=== PATIENT | female | born 1980 | race Caucasian/White ===

== ENCOUNTER 2016-12-09 17:00 | Emergency (ER) | payer MEDICAID ==
[~2016-12-09] VITALS: Wt 58.0 kg
[~2016-12-09 17:00] MED LIST: ACYC400T2 PO; HYDR-3498 PO; LORA-441 PO
[2016-12-09] MEDS ORDERED: KETOROLAC 15 MG INJ IM STA (17:32)
--- NOTE | 2016-12-09 17:34 | ERD ---
ER Documentation Chief Complaint Date/Time DATE: 12/09/16 TIME: 17:31 Chief Complaint LOW BACK PAIN, NO INJURY HPI 36-year-old Macedonian-speaking female presents to emergency department for evaluation of acute back pain, x 2 days, pt has similar symptoms a month ago but resolved . She denies any past medical history of back pain, she does report that she has experienced intermittent back pain ever since epidural 9 years ago with childbirth. translation provided by phone marek. ROS All systems reviewed and are negative except as per history of present illness. Medications Home Meds Active Scripts Hydrocodone Bit-Acetaminophen* (Nora*) 5-325 Mg Tab, 1 TAB PO Q4H Y for PAIN, # 10 TAB Prov:BASIL BETH PA-C 06/17/15 Acyclovir* (Acyclovir*) 400 Mg Tablet, 400 MG PO TID for 7 Days, TAB Prov:BASIL BETH PA-C 06/17/15 Lorazepam* (Ativan*) 0.5 Mg Tablet, 0.5 MG PO BID Y for ANXIETY, #10 TAB Prov:BASIL BETH PA-C 11/24/14 Allergies Allergies: Coded Allergies: No Known Allergies (Verified Allergy, Unknown, 11/24/14) PMhx/Soc History of Surgery: No Anesthesia Reaction: No Hx Neurological Disorder: No Hx Respiratory Disorders: No Hx Cardiac Disorders: No Hx Psychiatric Problems: No Hx Alcohol Use: No Hx Substance Use: No Hx Tobacco Use: No Smoking Status: Never smoker Physical Exam Vitals Vital Signs Date Time Temp Pulse Resp B/P Pulse Ox O2 Delivery O2 Flow Rate FiO2 12/09/16 17:03 97.8 68 17 183/77 99 No stable, triage notes reviewed, blood pressure is noted to be elevated at 183/ 77 suspected related to pain Physical Exam Const: Well-nourished, well-hydrated, well-appearing 36-year-old female obvious discomfort no acute distress Head: Atraumatic Eyes: Normal Conjunctiva, PERRLA, EOMI ENT: Neck: Full range of motion. No cervical spine bony point tenderness Resp: Clear to auscultation bilaterally, no chest wall pain, no respiratory distress Cardio: Regular rate and rhythm, no murmurs Abd: Soft, non tender, non distended. Skin: Back: Back Exam: Skin: No bruising or rash Compartments: Soft Motor: Right leg rises positive at 10 patient barely able to raise legs off the bed, pain with flexion, pain with abduction and abduction bilaterally. Sensation: Intact to light touch throughout Bones: No midline TTP Ext: No cyanosis, or edema Neur: Awake and alert Psych: Normal Mood and Affect Results 24 hrs Laboratory Tests Test 12/09/16 18:04 Bedside Urine pH (LAB) 6.5 Bedside Urine Protein (LAB) Negative Bedside Urine Glucose (UA) Negative Bedside Urine Ketones (LAB) Negative Bedside Urine Blood 1+ Bedside Urine Nitrite (LAB) Negative Bedside Urine Leukocyte Esterase (L Negative Current Medications Medications (Trade) Dose Ordered Sig/Sam Route PRN Reason Start Time Stop Time Status Last Admin Dose Admin Ketorolac Tromethamine (Toradol) 15 mg ONCE STAT IM 12/09/16 17:32 12/09/16 17:56 DC 12/09/16 18:01 Diazepam (Valium) 5 mg ONCE ONCE PO 12/09/16 18:00 12/09/16 18:01 DC 12/09/16 18:01 Procedures/MDM PROCEDURE: XR Lumbar Spine. CLINICAL INDICATION: Back pain. TECHNIQUE: Three views. AP, lateral and cone-down lateral view of the lumbar spine were obtained. COMPARISON: No prior studies are available for comparison. As dictated from radiologist impression 1 unremarkable image of the lumbar spine. 2 if there is clinical concern regarding disc abnormality correlation with MRI of lumbar spine is advised.: There is normal stature and alignment of the vertebrae. There is no fracture. There is no lytic or blastic lesion. The disk height is normal. The paravertebral soft tissues are unremarkable. IMPRESSION: 1. Unremarkable images of the lumbar spine. 2. If there is clinical concern regarding a disc abnormality. Correlation with MRI of the lumbar spine is advised. .Jerome Greenberg MD, MD Date Time Electronically viewed and signed by .Jerome Greenberg MD, on 12/09/2016 19:02 This 36-year-old female presents to emergency department with her family for evaluation of back pain. Pack pain is described as acute 2 days, has a medical history of back pain in the past but never has been seen for it pain usually subsides on its own or with [id number] medication. Patient denies any predisposing injury, states she has had pain intermittently for the last 9 years since epidural with childbirth. Patient denies any alteration in bowel or bladder, she is having difficulty ambulating but no foot drag or neglect is noted. Due to the inability to raise legs off of gurney during physical exam a lumbar x-ray is obtained., Results pending, urinalysis to rule out a urinary tract infection is also ordered, pain control with Toradol 15 mg intramuscularly and 5 mg Valium p.o. Patient reassessed after 30 minutes with improvement in back pain. X-ray findings per radiologist unremarkable images of the lumbar spine. Urinalysis negative for evidence of leukocytosis, nitrates, positive for microscopic hematuria. Patient to follow-up with primary care physician for evaluation of microscopic hematuria, will be discharged home today with Naprosyn 500 mg 1 tab p.o. twice daily 10 days take with food, Valium 5 mg 1 tab p.o. every 8 hours as needed count of 10. Patient instructed to continue to ambulate, gentle stretching, return to emergency department for any bowel or bladder incontinence, difficulty moving leg or ambulating. Patient is stable with no new complaints during ER course, clinically there is no current evidence to suggest equina, urinary tract infection, pyelonephritis or any other emergent condition appearing to require further evaluation or hospitalization. I feel the patient is stable for discharge at this time. I have discussed results, examination findings, the treatment plan with the patient and family present prior to discharge. Indications for emergent reevaluation, side effects of medication were also discussed. All questions were answered. Patient verbalizes understanding and agrees with plan of care. Departure Diagnosis: Primary Impression: Back pain Back pain location: low back pain Chronicity: acute Back pain laterality: bilateral Sciatica presence: without sciatica Qualified Code: M54.5 - Acute bilateral low back pain without sciatica Condition: Good Patient Instructions: Back Pain (Acute Or Chronic) Referrals: [facility] Additional Instructions: Thank you for for coming to [facility] for your care today. Please ask your nurse or provider if you have questions about your care today and do not leave until all your questions have been answered. Please use any medications given as directed and follow-up with your doctor (or the doctor you were referred to) in the next 2-3 days. If you do not have a primary care doctor you may follow up at the [facility] (listed below). You may also use motrin and tylenol as needed for fever and/or pain unless instructed otherwise by your provider or nurse. Indications for more urgent follow-up have been discussed, but you may return to the Emergency Department at ANY time for any worrisome or worsening symptoms. If you have abdominal pain, please know that no test or exam you received is perfect and you should follow up within 8 hours for continued pain. If you had any imaging studies today, such as an X-Ray or CT Scan, these studies will be reviewed later by a radiologist. You will be called if there are important findings that were not identified today, so make sure the contact information you provided at registration is correct. If you received any narcotic pain control medicine today, such as Vicodin, Morphine or Dilaudid, your coordination and judgment may be affected for a number of hours. Please do not drive or operate heavy machinery, and you may want someone to assist you at home. If you were given a prescription for narcotic medication, be aware that it is very addictive- use sparingly and only if necessary. ENMANUEL CURIEL Dec 09, 2016 17:34
[2016-12-09 17:58] LABS: URINE BLOOD (Dip) POC 1+ (NEGATIVE)
[2016-12-09] MEDS ORDERED: DIAZEPAM 5 MG TAB PO ONE (18:00)
--- NOTE | 2016-12-09 19:02 | RADRPT ---
PROCEDURE: XR Lumbar Spine. CLINICAL INDICATION: Back pain. TECHNIQUE: Three views. AP, lateral and cone-down lateral view of the lumbar spine were obtained. COMPARISON: No prior studies are available for comparison. FINDINGS: There is normal stature and alignment of the vertebrae. There is no fracture. There is no lytic or blastic lesion. The disk height is normal. The paravertebral soft tissues are unremarkable. IMPRESSION: 1. Unremarkable images of the lumbar spine. 2. If there is clinical concern regarding a disc abnormality. Correlation with MRI of the lumbar sp ine is advised. RPTAT: QQ .Jerome Greenberg MD, MD Date Time Electronically viewed and signed by .Jerome Greenberg MD, on 12/09/2016 19:02 .R/
[2016-12-09] MEDS ORDERED: DIAZ-90 PO (21:23)
[2016-12-09] MEDS ORDERED: NAPR-260 PO (21:23)
[2016-12-09 21:30] VITALS: BP 141/67; PULSE 51; RESP 17; TEMP 97.5
== END 2016-12-09 21:30 | disposition home or self-care (01) ==
LOC: FTE 17:00
DX: M54.5 Low back pain (principal)
CPT/HCPCS: 72100; 81003; 96372; J1885; Z7502; Z7610

== ENCOUNTER 2017-08-07 08:28 | Emergency (ER) | END 2017-08-07 11:11 | disposition home or self-care (01) ==